=== PATIENT | male | born 1965 | race Caucasian/White ===

== ENCOUNTER 2021-07-17 19:33 | Emergency (ER) | payer OTHER ==
[~2021-07-17] VITALS: Ht 165.1 cm; Wt 61.7 kg
[~2021-07-17 19:33] MED LIST: LORA-476 PO
[2021-07-17 19:41] VITALS: BP 113/76
--- NOTE | 2021-07-17 20:15 | NUR ---
PATIENT AMBULATED TO THE AND BACK TO BED 8
--- NOTE | 2021-07-17 20:15 | NUR ---
UA COLLECTED AND HANDED TO LAB
--- NOTE | 2021-07-17 20:28 | NUR ---
Patient taken to us via wheel chair with [employer].
--- NOTE | 2021-07-17 20:59 | NUR ---
PT RETURNED TO BED #8 VIA W/C
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
--- NOTE | 2021-07-17 22:32 | NUR ---
MD CONNOR AT BEDSIDE
[2021-07-17 23:25] VITALS: BP 135/78
--- NOTE | 2021-07-17 23:25 | NUR ---
Patient discharged with v/s stable. Written and verbal after care instructions given and explained. Patient verbalized understanding. Ambulatory with steady gait. Advised to follow up with PMD.
--- NOTE | 2021-07-18 00:23 | NUR ---
The patient's care was reviewed and supervised by Korina Dunlap RN.
== END 2021-07-17 23:25 | disposition home or self-care (01) ==
LOC: MED 19:33
DX: N50.819 Testicular pain, unspecified (principal); Z79.899 Other long term (current) drug therapy
CPT/HCPCS: 76870; 81002; 99284; Q0092

== ENCOUNTER 2021-08-25 17:11 | Emergency (ER) | payer OTHER ==
[~2021-08-25] VITALS: Ht 165.1 cm; Wt 59.9 kg
[2021-08-25 17:31] VITALS: BP 107/64
[2021-08-25] MEDS ORDERED: KETOROLAC 30 MG/ML VIAL IM ONE (18:40)
[2021-08-25 19:17] VITALS: BP 130/75
--- NOTE | 2021-08-25 19:22 | NUR ---
PT MEDICATED PER ORDERS. SENT BACK TO LOBBY.
--- NOTE | 2021-08-25 19:32 | NUR ---
PT TAKEN TO BED 6
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
--- NOTE | 2021-08-25 20:30 | NUR ---
JALEN FARRAR AT BEDSIDE
[2021-08-25] MEDS ORDERED: LIDO5TDM59 TP (20:34)
[2021-08-25] MEDS ORDERED: CYCL-711 PO (20:34)
[2021-08-25] MEDS ORDERED: IBUP-2213 PO (20:34)
--- NOTE | 2021-08-25 21:06 | NUR ---
Patient discharged with v/s stable. Written and verbal after care instructions given and explained. Patient alert, oriented and verbalized understanding of instructions. Ambulatory with steady gait. All questions addressed prior to discharge. ID band removed. Patient advised to follow up with PMD. Rx of CYCLOBENZAPRINE HCL, IBUPROFEN, AND LIDOCAINE given.
--- NOTE | 2021-08-25 21:11 | NUR ---
The patient's care was reviewed and supervised by Sheeba Weems, RN, RN.
== END 2021-08-25 21:06 | disposition home or self-care (01) ==
LOC: MED 17:11
DX: S39.012A Strain of muscle, fascia and tendon of lower back, initial encounter (principal); Z79.899 Other long term (current) drug therapy; X58.XXXA Exposure to other specified factors, initial encounter; Y93.89 Activity, other specified; Y92.89 Other specified places as the place of occurrence of the external cause; Y99.8 Other external cause status
CPT/HCPCS: 81002; 96372; 99283; J1885

== ENCOUNTER 2021-12-04 16:16 | Emergency (ER) | payer OTHER ==
[~2021-12-04] VITALS: Ht 160.5 cm; Wt 58.2 kg
[~2021-12-04 16:16] MED LIST changes: +CYCL-711 PO; +IBUP-2213 PO; +LIDO5TDM59 TP
[2021-12-04 16:34] VITALS: BP 125/73
--- NOTE | 2021-12-04 16:40 | NUR ---
Mike lopez in [facility] - 12/04/21 at 1647 by MED1 MAYCOL Blackwell
--- NOTE | 2021-12-04 16:41 | NUR ---
BIB SELF C/O 6/10 LOWER BACK PAIN X 3 DAYS. DENIES TRAU OR DYDURIA. DENIES N/V/D; SKIN IS PINK/WARM/DRY; AAOX4 WITH EVEN AND STEADY GAIT; LUNGS CLEAR BL; HR EVEN AND REGULAR; PT DENIES ANY FEVER, CP, SOB, OR COUGH AT THIS TIME.
--- NOTE | 2021-12-04 16:45 | NUR ---
Patient being evaluated by JALEN HANDLEY at bedside.
[2021-12-04] MEDS ORDERED: NAPR-54 PO (16:50)
[2021-12-04] MEDS ORDERED: CYCL-711 PO (16:50)
[2021-12-04] MEDS ORDERED: LIDO4CRE18 TP (16:50)
[2021-12-04 17:00] VITALS: BP 122/72
--- NOTE | 2021-12-04 17:00 | NUR ---
Patient discharged with v/s stable. Written and verbal after care instructions given and explained. Patient alert, oriented and verbalized understanding of instructions. Ambulatory with steady gait. All questions addressed prior to discharge. ID band removed. Patient advised to follow up with PMD. Rx of FLEXERIL,ANECREAM,NAPROSYN given. Patient educated on indication of medication including possible reaction and side effects. Opportunity to ask questions provided and answered.
== END 2021-12-04 17:00 | disposition home or self-care (01) ==
LOC: MED 16:16
DX: M54.50 Low back pain, unspecified (principal); Z79.899 Other long term (current) drug therapy; Z79.1 Long term (current) use of non-steroidal anti-inflammatories (NSAID)
CPT/HCPCS: 81002; 99283

== ENCOUNTER 2021-12-25 14:40 | Emergency (ER) | payer OTHER ==
[~2021-12-25] VITALS: Ht 165.1 cm; Wt 60.3 kg
[~2021-12-25 14:40] MED LIST changes: +LIDO4CRE18 TP; +NAPR-54 PO
[2021-12-25 15:23] VITALS: BP 121/49
--- NOTE | 2021-12-25 16:00 | NUR ---
C/O 8/10 KNEES /FEET PAIN X 4 DAYS. DENIES INJURY.
[2021-12-25] MEDS ORDERED: LIDO4CRE18 TP (18:03)
--- NOTE | 2021-12-25 19:30 | NUR ---
Patient discharged with v/s stable. Written and verbal after care instructions given and explained. Patient alert, oriented and verbalized understanding of instructions. Ambulatory with steady gait. All questions addressed prior to discharge. ID band removed. Patient advised to follow up with PMD. Rx of LIDOCAINE given. Patient educated on indication of medication including possible reaction and side effects. Opportunity to ask questions provided and answered.
== END 2021-12-25 19:30 | disposition home or self-care (01) ==
LOC: MED 14:40
DX: S82.402A Unspecified fracture of shaft of left fibula, initial encounter for closed fracture (principal); S82.401A Unspecified fracture of shaft of right fibula, initial encounter for closed fracture; X58.XXXA Exposure to other specified factors, initial encounter; Y93.89 Activity, other specified; Y92.89 Other specified places as the place of occurrence of the external cause; Y99.8 Other external cause status
CPT/HCPCS: 73562; 73610; 99284

== ENCOUNTER 2022-03-05 15:37 | Emergency (ER) | payer OTHER ==
[~2022-03-05] VITALS: Ht 160 cm; Wt 75.3 kg
[2022-03-05 15:43] VITALS: BP 148/89
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
--- NOTE | 2022-03-05 15:47 | NUR ---
PT GUIDOA MOVED TO BED 12
--- NOTE | 2022-03-05 16:15 | NUR ---
CHP AT BEDSIDE
[2022-03-05 17:40] VITALS: BP 144/76
--- NOTE | 2022-03-05 18:08 | NUR ---
PT IS ALERT AND AWAKE AT THIS TIME. PT CALLING FAMILY FOR PICKUP. PT AMBULATORY AND STEADY ON GAIT. VITALS STABLE
--- NOTE | 2022-03-05 18:10 | NUR ---
Patient discharged with v/s stable. Written and verbal after care instructions given and explained. Patient verbalized understanding. Ambulatory with steady gait. All questions addressed prior to discharge. Advised to follow up with PMD.
== END 2022-03-05 18:10 | disposition home or self-care (01) ==
LOC: MED 15:37
DX: F10.129 Alcohol abuse with intoxication, unspecified (principal); Z79.899 Other long term (current) drug therapy; V47.5XXA Car driver injured in collision with fixed or stationary object in traffic accident, initial encounter; Y93.89 Activity, other specified; Y92.89 Other specified places as the place of occurrence of the external cause; Y99.8 Other external cause status
CPT/HCPCS: 70450; 71045; 99284; Q0092

== ENCOUNTER 2022-10-31 12:24 | Emergency (ER) | payer OTHER ==
[~2022-10-31] VITALS: Ht 165.1 cm; Wt 59.0 kg
[2022-10-31 12:35] VITALS: BP 132/84; PULSE 66; RESP 15; TEMP 98; O2SAT 67
[2022-10-31] MEDS ORDERED: KETOROLAC 30 MG/ML VIAL IM ONE (13:00)
[2022-10-31] MEDS ORDERED: LID5T TP (13:11)
[2022-10-31] MEDS ORDERED: IBUP-2213 PO (13:11)
[2022-10-31] MEDS ORDERED: GABA100C PO (13:11)
[2022-10-31] MEDS ORDERED: CYCL-711 PO (13:11)
== END 2022-10-31 13:46 | disposition home or self-care (01) ==
LOC: MED 12:24
DX: M54.16 Radiculopathy, lumbar region (principal); I10 Essential (primary) hypertension; Z79.899 Other long term (current) drug therapy
CPT/HCPCS: 81002; 96372; 99283; J1885

== ENCOUNTER 2022-11-09 09:23 | Emergency (ER) | payer OTHER ==
[~2022-11-09] VITALS: Ht 170.2 cm; Wt 74.8 kg
[~2022-11-09 09:23] MED LIST changes: +GABA100C PO; +LID5T TP
[2022-11-09 09:54] VITALS: BP 122/75; PULSE 67; RESP 17; TEMP 97.4; O2SAT 97
[2022-11-09] MEDS ORDERED: LIDO5TDM59 TP (10:46)
[2022-11-09] MEDS ORDERED: GABA100C PO (10:46)
[2022-11-09] MEDS ORDERED: CYCL-711 PO (10:46)
[2022-11-09 10:50] VITALS: BP 132/79; PULSE 74; RESP 17; O2SAT 98
== END 2022-11-09 10:51 | disposition home or self-care (01) ==
LOC: MED 09:23
DX: M54.16 Radiculopathy, lumbar region (principal); I10 Essential (primary) hypertension; Z76.0 Encounter for issue of repeat prescription; Z79.899 Other long term (current) drug therapy
CPT/HCPCS: 99281

== ENCOUNTER 2023-08-14 13:01 | Emergency (ER) | payer OTHER ==
[~2023-08-14] VITALS: Ht 165.1 cm; Wt 59.0 kg
[~2023-08-14 13:01] MED LIST changes: +NAPR-337 PO; -NAPR-54 PO
[2023-08-14 13:13] VITALS: BP 115/75; PULSE 63; RESP 18; TEMP 97.1; O2SAT 96
[2023-08-14] MEDS: FLUORESCEIN OPTH STRIP 1 MG OP ONE (14:01)
[2023-08-14] MEDS: TETRACAINE HCL/PF 0.5% OPTH 4 ML BTL OP ONE (14:01)
[2023-08-14] MEDS ORDERED: CIPR2.5D3 RIGHT EYE (14:16)
== END 2023-08-14 14:56 | disposition home or self-care (01) ==
LOC: MED 13:01
DX: H53.141 Visual discomfort, right eye (principal)
CPT/HCPCS: 99283

== ENCOUNTER 2023-10-15 18:12 | Emergency (ER) | payer OTHER ==
[~2023-10-15] VITALS: Ht 165.1 cm; Wt 62.1 kg
[~2023-10-15 18:12] MED LIST changes: +CIPR2.5D3 RIGHT EYE
[2023-10-15 18:34] VITALS: BP 138/73; PULSE 98; RESP 20; TEMP 103.2; O2SAT 95
[2023-10-15] MEDS: NACL 0.9% 1,000 ML IV ONE (19:05)
[2023-10-15] MEDS: ACETAMINOPHEN EXTRA STRENGTH 500 MG TAB PO ONE (19:07)
[2023-10-15 19:11] LABS: BASOPHILS # (AUTO) 0.1 K/uL (0.00-0.22); BASOPHILS % (AUTO) 0.3 % (0.0-2.0); EOSINOPHILS # (AUTO) 0.2 K/uL (0-0.4); EOSINOPHILS % (AUTO) 0.9 % (0.0-4.0); HEMATOCRIT 40.5 % (36-52); HEMOGLOBIN 13.6 g/dL (12.0-18.0); LYMPHOCYTES # (AUTO) 0.6 K/uL (2.0-11.5); LYMPHOCYTES % (AUTO) 3.2 % (20.5-51.1); MEAN CORPUSCULAR HEMOGLOBIN 32 pg (27-31); MEAN CORPUSCULAR HGB CONC 34 g/dL (33-37); MEAN CORPUSCULAR VOLUME 93.8 fL (80-94); MONOCYTES % (AUTO) 5.1 % (1.7-9.3); NEUTROPHILS # (AUTO) 17.9 K/uL (1.8-7.7); NEUTROPHILS % (AUTO) 90.5 % (42.2-75.2); PLATELET COUNT (AUTO) 183 K/uL (140-450); RED BLOOD CELL COUNT(AUTO) 4.32 MIL/uL (4.20-6.10); RED CELL DISTRIBUTION WIDTH 12.8 % (11.6-13.7); WHITE BLOOD COUNT (AUTO) 19.8 K/uL (4.8-10.8)
[2023-10-15] MEDS: KETOROLAC 30 MG/ML VIAL IVP ONE (19:16)
[2023-10-15 19:39] LABS: ANION GAP 12.8 (8-16); CALCIUM 8.9 mg/dL (8.5-10.1); CARBON DIOXIDE 26.8 mmol/L (21-32); CREATININE 0.9 mg/dL (0.6-1.3); POTASSIUM 3.6 mmol/L (3.5-5.1); TOTAL BILIRUBIN 1.1 mg/dL (0.0-1.0)
[2023-10-15 19:42] LABS: LACTIC ACID 0.9 mmol/L (0.4-2.0)
[2023-10-15 19:57] LABS: FLU A ANTIGEN negative (NEGATIVE); FLU B ANTIGEN NEGATIVE (NEGATIVE)
[2023-10-15 20:13] VITALS: O2SAT 95
[2023-10-15 20:13] LABS: APPEARANCE,URINE CLEAR (CLEAR); BILIRUBIN,URINE NEGATIVE (NEGATIVE); BLOOD, URINE NEGATIVE (NEGATIVE); COLOR,URINE YELLOW (YELLOW); LEUKOCYTE ESTERASE ,URINE NEGATIVE (NEGATIVE); NITRITE, URINE NEGATIVE (NEGATIVE); PROTEIN,URINE NEGATIVE (NEGATIVE); UGLUCOSE NEGATIVE (NEGATIVE); UROBILINOGEN,URINE 0.2 EU/dL (0.2 - 1)
[2023-10-15 22:50] VITALS: O2SAT 93
[2023-10-15 23:21] VITALS: BP 109/57; PULSE 76; RESP 19; TEMP 98.1; O2SAT 93
== END 2023-10-15 23:36 | disposition home or self-care (01) ==
LOC: MED 18:12
DX: M79.18 Myalgia, other site (principal); R50.9 Fever, unspecified; R05.9 Cough, unspecified; Z20.822 Contact with and (suspected) exposure to COVID-19; R09.81 Nasal congestion; I10 Essential (primary) hypertension; Z79.899 Other long term (current) drug therapy
CPT/HCPCS: 36415; 71046; 74177; 80053; 81003; 83605; 83690; 85025; 87040; 87426; 87804; 96361; 96374; 99285; J1885; J7030; Q9967